=== PATIENT | female | born 1995 | race Caucasian/White ===

== ENCOUNTER 2018-07-05 06:27 | Emergency (ER) | payer SELFPAY ==
[~2018-07-05] VITALS: Ht 162.6 cm; Wt 65.8 kg
[2018-07-05] MEDS ORDERED: ZARAH (06:46)
[2018-07-05] MEDS ORDERED: PANTOPRAZOLE SODIUM 40 MG TABLET.DR PO ONE ×2 (07:00→07:15)
--- NOTE | 2018-07-05 07:10 | NUR ---
patient to ed with c/o abdominal pain. states sx started this am after drinking alchol. patient present alert/oriented, no vomiting, no s/s of distress. patient pleasant and cooperative. urine obtained and sent to lab
--- NOTE | 2018-07-05 07:20 | NUR ---
Patient is resting comfortably in bed with eyes closed.
[2018-07-05 07:21] LABS: *BILIRUBIN,URIN NEGATIVE (NEGATIVE); *BLOOD, URINE NEGATIVE (NEGATIVE); *CLARITY,URINE CLEAR (CLEAR); *COLOR,URINE YELLOW (YELLOW); *KETONES,URINE NEGATIVE (NEGATIVE); *PROTEIN,URINE NEGATIVE (NEGATIVE); *UROBILINOGEN,URINE 0.2 E.U./dl (NORMAL); LEUKOCYTE ESTERASE ,URINE NEGATIVE (NEGATIVE); NITRITE, URINE NEGATIVE (NEGATIVE); UGLUCOSE NEGATIVE (NEGATIVE)
[2018-07-05 07:23] LABS: *URINE HCG, QUAL NEGATIVE (NEGATIVE); RBC,URINE NONE SEEN /HPF (0-3); WBC,URINE NONE SEEN /HPF (0-3)
--- NOTE | 2018-07-05 07:25 | NUR ---
DR GUTIERREZ AT BEDSIDE SPOKE WITH MOTHER. PATIENT WILL BE DC HOME.
[2018-07-05] MEDS ORDERED: ACETAMINOPHEN ES 500 MG TABLET ONE (07:35)
[2018-07-05 07:38] VITALS: BP 103/53
--- NOTE | 2018-07-05 07:38 | NUR ---
Patient discharged to home in stable conditon. Written and verbal after care instructions given. Patient mother verbalizes understanding of instructions.
[2018-07-05] MEDS ORDERED: ACETAMINOPHEN ES 500 MG TABLET PO ONE (07:45)
== END 2018-07-05 07:40 | disposition home or self-care (01) ==
LOC: ER 06:38
DX: R10.32 Left lower quadrant pain (principal)
CPT/HCPCS: 81001; 84703; 99284; A4663; A9150